=== PATIENT | female | born 2000 | race Two or more races ===

== ENCOUNTER 2019-06-07 07:44 | Inpatient (IN) | payer OTHER ==
[~2019-06-07] VITALS: Ht 157.5 cm; Wt 66.8 kg
[2019-06-07] MEDS ORDERED: IBUP80TA PO (07:54)
[2019-06-07] MEDS ORDERED: MELA3TAB12 PO (07:54)
[2019-06-07 09:12] LABS: HEMATOCRIT 41.4 % (36.0-47.0); HEMOGLOBIN 13.9 g/dl (12.0-15.5); MEAN CORPUSCULAR HEMOGLOBIN 30.2 pg (27.0-33.0); MEAN CORPUSCULAR HGB CONC 33.6 g/dl (32.0-36.5); PLATELET COUNT, AUTOMATED 353 10^3/uL (150-450); WHITE BLOOD COUNT 12.4 10^3/uL (4.0-10.0)
[2019-06-07 09:47] LABS: ACETAMINOPHEN LEVEL < 2.0 UG/ML (10.0-30.0); ALBUMIN 4.4 GM/DL (3.2-5.2); ALT/SGPT 16 U/L (12-78); BILIRUBIN,DIRECT 0.3 MG/DL (0.0-0.2); BILIRUBIN,TOTAL 0.8 MG/DL (0.2-1.0); BLOOD UREA NITROGEN 13 MG/DL (7-18); CALCIUM LEVEL 8.9 MG/DL (8.5-10.1); CARBON DIOXIDE LEVEL 22 MEQ/L (21-32); CHLORIDE LEVEL 107 MEQ/L (98-107); ETHYL ALCOHOL (ETHANOL) < 0.003 % (0.000-0.010); GLUCOSE, FASTING 92 MG/DL (70-100); POTASSIUM SERUM 3.4 MEQ/L (3.5-5.1); SALICYLATE LEVEL < 1.7 MG/DL (5.0-30.0); SODIUM LEVEL 139 MEQ/L (136-145)
--- NOTE | 2019-06-07 09:57 | REP ---
CT BRAIN WITHOUT CONTRAST: 06/07/2019. Clinical history: Hallucinations. Findings: No prior studies. Standard noncontrast protocol utilized. Lateral ventricles are midline, symmetric and without dilatation or displacement. Third and fourth ventricles also in proportion. Basal ganglia symmetric and normal. Valladares/white junction differentiation was well maintained. Cortical stripe preserved. There is no atrophy, vascular territory infarct, intracranial hemorrhage, extra-axial fluid collection or mass/mass effect. White matter changes are seen. The brainstem and cerebellum are unremarkable. Basal cisterns intact. Mastoids and sinuses visible were clear. The skull base and calvarium show no fracture, focal lesion. Impression: 1. Normal CT brain. Electronically Signed by Enrique Cutler MD 06/07/2019 08:19 P
[2019-06-07 11:53] LABS: AMPHETAMINES LEVEL URINE NEGATIVE (NEGATIVE); BARBITURATES URINE NEGATIVE (NEGATIVE); BENZODIAZEPINES URINE NEGATIVE (NEGATIVE); CANNABINOIDS URINE NEGATIVE (NEGATIVE); COCAINE METABOLITE URINE NEGATIVE (NEGATIVE); METHADONE URINE NEGATIVE (NEGATIVE); OPIATES URINE NEGATIVE (NEGATIVE); PHENCYCLIDINE URINE NEGATIVE (NEGATIVE)
[2019-06-07] MEDS ORDERED: BENA25CA4 PO (14:41)
[2019-06-07] MEDS ORDERED: LORazepam 0.5 MG TAB PO STA (14:53)
[2019-06-07] MEDS ORDERED: ONDANSETRON 4 MG ORAL DISINTEGRATING TAB (Q0162 PER 1MG) PO ONE (15:30)
[2019-06-07] MEDS ORDERED: diphenhydrAMINE 25 MG CAP PO ONE (20:45)
[2019-06-07] MEDS ORDERED: ACETAMINOPHEN TAB 650MG DOSE (2X325MG) PO ONE (20:45)
[2019-06-08] MEDS ORDERED: LORazepam 1 MG TAB PO ONE ×2 (01:00→06:45)
[2019-06-08] MEDS ORDERED: MOM 30ML SUSPENSION UDC PO PRN (14:45)
[2019-06-08] MEDS ORDERED: MAALOX 30 ML SUSP *UDC PO PRN (14:45)
[2019-06-08] MEDS: hydrOXYzine 25 MG TAB PO PRN (17:59)
[2019-06-08] MEDS ORDERED: LORazepam 0.5 MG TAB PO ONE (22:00)
[2019-06-09] MEDS: traZODone 50 MG TAB PO PRN ×2 (00:09→22:31)
[2019-06-09] MEDS: hydrOXYzine 25 MG TAB PO PRN ×5 (00:09→20:29)
[2019-06-09 06:16] VITALS: BP 120/74
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
--- NOTE | 2019-06-09 13:48 | HPEPDOC ---
General Date of Admission Jun 08, 2019 at 14:39 Date of Service: Jun 09, 2019 Chief Complaint The patient is a 18-year-old female admitted with a reason for visit of Psychotic Disorder. Source: Patient Exam Limitations: No limitations Timing/Duration: Other (, not applicable) Severity: Other (not applicable) Associated Symptoms: Other (not applicable) History of Present Illness 18 years old female admitted to inpatient mental health unit with possible depression. Patient denies any other complaints except anxiety and does not have any medical history of any disease. Home Medications Scheduled PRN Diphenhydramine HCl (Benadryl) 25 Mg Capsule, 25 MG PO Q6H PRN for ALLERGY SYMPTOMS, (Reported) Ibuprofen (Ibuprofen) 800 Mg Tablet, 800 MG PO TID PRN for PAIN, (Reported) Melatonin (Melatonin) 3 Mg Tablet, 3 MG PO QHS PRN for SLEEP, (Reported) Allergies Coded Allergies: No Known Allergies (Verified Allergy, Unknown, 06/07/19) Past Medical History Medical History History of generalized anxiety disorder Surgical History No surgical history Family History Significant Family History: No pertinent family hx Social History * Smoker: Denies Drugs: denies A-FIB/CHADSVASC A-FIB History Current/History of A-Fib/PAF?: No Review of Systems Constitutional: Denies: Chills, Fever, Malaise, Night Sweats, Weakness, Fatigue , Weight Loss, Lethargy, Other Eyes: Denies: Pain, Vision change, Conjunctivae inflammation, Eyelid inflam mation, Redness, Other ENT: Denies: Head Aches, Ear Pain, Dysphagia, Sinus Congestion, Post Nasal Drip, Sore Throat, Epistaxis, Other Symptoms Skin: Denies: Rash, Lesions, Jaundice, Bruising, Itching, Dry, Breakdown, Nail Changes, Other Pulmonary: Denies: Dyspnea, Cough, Pleuritic Chest Pain, Other Symptoms Cardiovascular: Denies: Chest Pain, Palpitations, Orthopnea, Paroxysmal Noc. Dyspnea, Edema, Lt Headedness, Other Symptoms Gastrointestinal: Denies: Nausea, Vomiting, Abdominal Pain, Diarrhea, Constipation, Melena, Hematochezia, Other Symptoms Genitourinary: Denies: Dysuria, Frequency, Incontinence, Hematuria, Retention, Other Symptoms Hematologic: Denies: Bruising, Bleeding Excessively, Petecchia, Purpura, Enlarged Lymph Nodes, Other Hematologic Endocrine: Denies: Polydipsia, Polyphagia, Polyuria, Heat Intolerance, Cold Intolerance, Other Endocrine Sx Musculoskeletal: Denies: Neck Pain, Back Pain, Shoulder Pain, Arm Pain, Hand Pain, Leg Pain, Foot Pain, Joint Pain, Muscle Pain, Spasms, Other Symptoms Neurological: Denies: Weakness, Numbness, Incoordination, Change in speech, Confusion, Seizures, Other Symptoms Psych: Reports: Anxiety Physical Examination General Exam: Positive: Alert, Cooperative Eye Exam: Positive: PERRLA, Conjunctiva & lids normal ENT Exam: Positive: Atraumatic, Mucous membr. moist/pink Neck Exam: Positive: Supple Chest Exam: Positive: Clear to auscultation, Normal air movement Heart Exam: Positive: Rate Normal, Normal S1, Normal S2 Abdomen Exam: Positive: Normal bowel sounds, Soft Extremity Exam: Positive: Normal pulses Skin Exam: Positive: Nl turgor and temperature Neuro Exam: Positive: Strength at 5/5 X4 ext, Cranial Nerves 3-12 NL Psych Exam: Positive: Mental status NL, Mood NL, Oriented x 3 Vital Signs Vital Signs Date Time Temp Pulse Resp B/P (MAP) Pulse Ox O2 Delivery O2 Flow Rate FiO2 06/09/19 06:16 98.8 118 18 120/74 (89) 06/08/19 16:04 98 Room Air Problems (1) Depression Status: Acute Problem Text: Patient admitted to inpatient mental health unit Individual and group therapy as per psych Antidepressant medication as per psychiatry Lab checked. There is slight hypokalemia, otherwise normal CBC, CMP and CAT scan of the head is essentially within normal limits (2) Hypokalemia Status: Acute Problem Text: Will give one dose of KCl 40 mg by mouth 1 Plan / VTE VTE Prophylaxis Ordered?: Yes JOLIE WATERS MD Jun 09, 2019 13:48
[2019-06-09] MEDS ORDERED: POTASSIUM CHLORIDE 10 MEQ SR TABLET PO ONE (14:00)
[2019-06-09 17:45] VITALS: BP 110/80
[2019-06-10] MEDS ORDERED: LORazepam 1 MG TAB PO ONE
[2019-06-10] MEDS ORDERED: PRAZOSIN 1 MG CAP PO ONE
[2019-06-10 06:14] VITALS: BP 101/57
[2019-06-10] MEDS: hydrOXYzine 25 MG TAB PO PRN ×4 (08:50→22:10)
[2019-06-10] MEDS ORDERED: INFLUENZA QUADRIVALENT PF VACCINE 0.5ML SYRINGE (90686) IM ONE (09:00)
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
[2019-06-10] MEDS: IBUPROFEN 400 MG TAB PO PRN ×2 (11:17→18:06)
[2019-06-10 16:00] VITALS: BP 99/54
[2019-06-10] MEDS ORDERED: PRAZOSIN 1 MG CAP PO SCH (21:00)
[2019-06-10 22:10] VITALS: BP 130/72
[2019-06-10] MEDS: traZODone 50 MG TAB PO PRN (22:10)
[2019-06-11] MEDS: IBUPROFEN 400 MG TAB PO PRN (06:17)
[2019-06-11] MEDS: hydrOXYzine 25 MG TAB PO PRN ×2 (06:18→10:21)
[2019-06-11 06:26] VITALS: BP 138/75
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
[2019-06-11] MEDS ORDERED: TRAZ-252 PO (09:08)
[2019-06-11] MEDS ORDERED: MINI1CAP PO (09:08)
[2019-06-11] MEDS ORDERED: BENA25CA4 PO (09:08)
[2019-06-11] MEDS ORDERED: VIST25CA PO (11:58)
== END 2019-06-11 11:30 | disposition home or self-care (01) | DRG 882 ==
LOC: M ED 07:44 → M ED INP 06-08 14:39 → M PSY 06-08 15:48
PROVIDERS: ADMIT Psychiatry & Neurology Psychiatry; ATTEND Psychiatry & Neurology Psychiatry
DX: F43.11 Post-traumatic stress disorder, acute (principal); F32.9 Major depressive disorder, single episode, unspecified; F41.1 Generalized anxiety disorder; F60.89 Other specific personality disorders; Z79.899 Other long term (current) drug therapy; E87.6 Hypokalemia

== ENCOUNTER 2020-07-24 03:30 | Emergency (ER) | payer OTHER ==
[~2020-07-24] VITALS: Ht 157.5 cm; Wt 63.6 kg
[~2020-07-24 03:30] MED LIST: BENA25CA4 PO; IBUP80TA PO; MELA3TAB12 PO; MINI1CAP PO; TRAZ-252 PO; VIST25CA PO
[2020-07-24 05:00] VITALS: BP 104/63
== END 2020-07-24 05:07 | disposition home or self-care (01) ==
LOC: M ED 03:30
DX: F10.129 Alcohol abuse with intoxication, unspecified (principal)